=== PATIENT | male | born 1980 | race Caucasian/White ===

== ENCOUNTER 2017-10-10 07:58 | Emergency (ER) | payer BC ==
[2017-10-10] MEDS ORDERED: HYDROmorphone 0.5 MG/0.5 ML SYRINGE IVPUSH ONE (08:11)
[2017-10-10] MEDS ORDERED: Metoclopramide 10 MG/2 ML SDV IVPUSH ONE (08:11)
[2017-10-10] MEDS ORDERED: Sodium Chloride 0.9% 1,000 ML IV SCH (08:15)
[2017-10-10] MEDS ORDERED: Ketorolac 30 MG/ML SDV IVPUSH SCH (08:15)
--- NOTE | 2017-10-10 08:18 | EDM.PDOC ---
ED HPI GENERAL MEDICAL PROBLEM - General Chief Complaint: Abdominal Pain Stated Complaint: ABDOMINAL PAIN/BACK PAIN Time Seen by Provider: 10/10/17 08:08 Source of Information: Reports: Patient History Limitations: Reports: No Limitations - History of Present Illness INITIAL COMMENTS - FREE TEXT/NARRATIVE: 37-year-old male presents the ED with acute onset of left flank pain about 0530 hrs. Pain started in the left flank and then progressed down into his left mid abdomen. No pain in the groin or testicle. Pain is constant with a strong colicky component. Associated nausea without vomiting. Diffuse diaphoresis. Did have a bowel movement and has a continual feeling of need to void. Did not notice any blood in his urine. Has no prior history of kidney stone disease. No family history of renal stones. No previous abdominal surgery. Onset: Today Onset Date: 10/10/17 Onset Time: 06:00 Duration: Hour(s): Location: Reports: Abdomen (Left mid to lower abdomen.), Back (Left flank) Quality: Reports: Ache, Pressure, Other Severity: Severe (Current pain is current pain is 9 out of 10) Improves with: Reports: None Worsens with: Reports: None Context: Reports: Other (Spontaneous occurrence left flank shortly after getting up from the day.). Denies: Activity, Exercise, Lifting, Sick Contact, Trauma Associated Symptoms: Reports: Diaphoresis, Loss of Appetite, Nausea/Vomiting ( Nausea without vomiting). Denies: Confusion, Chest Pain, Cough, cough w sputum , Malaise, Rash, Seizure, Shortness of Breath, Syncope Treatments HOME [facility] LPN: Reports: Other (see below) (None.) Left Flank Pain Score (Numeric/FACES): 9 - Related Data Allergies Allergy/AdvReac Type Severity Reaction Status Date / Time acetaminophen [From Tylenol] Allergy Fever Verified 10/10/17 08:05 dextromethorphan HBr Allergy Fever Verified 10/10/17 08:05 [From Tylenol Cold Multi-Symptom] guaifenesin Allergy Fever Verified 10/10/17 08:05 [From Tylenol Cold Multi-Symptom] lidocaine Allergy Cannot Verified 10/10/17 08:05 Remember Penicillins Allergy Cannot Verified 10/10/17 08:05 Remember phenylephrine HCl Allergy Fever Verified 10/10/17 08:05 [From Tylenol Cold Multi-Symptom] pseudoephedrine HCl Allergy Fever Verified 10/10/17 08:05 [From Tylenol Cold Multi-Symptom] Home Meds: Home Meds Escitalopram [Lexapro] 10 mg PO DAILY 10/10/17 [History] Metoprolol Succinate 100 mg PO DAILY 10/10/17 [History] Ondansetron [Zofran] 4 mg BUCCAL Q6H PRN #5 tab 10/10/17 [Rx] Tamsulosin HCl [Flomax] 0.4 mg PO DAILY #5 cap.er.24h 10/10/17 [Rx] amLODIPine Besylate [Amlodipine Besylate] 5 mg PO DAILY 10/10/17 [History] oxyCODONE HCl [Roxicodone] 5 mg PO Q4H PRN #15 tablet 10/10/17 [Rx] Past Medical History Cardiovascular History: Reports: Hypertension Gastrointestinal History: Reports: Pancreatitis - Past Surgical History Musculoskeletal Surgical History: Reports: Other (See Below) Other Musculoskeletal Surgeries/Procedures:: knee surgery Social & Family History - Tobacco Use Smoking Status *Q: Never Smoker - Recreational Drug Use Recreational Drug Use: No - Living Situation & Occupation Living situation: Reports: Occupation: Employed ED ROS GENERAL - Review of Systems Review Of Systems: See Below Constitutional: Reports: No Symptoms HEENT: Reports: No Symptoms Respiratory: Reports: No Symptoms Cardiovascular: Reports: No Symptoms Endocrine: Reports: No Symptoms GI/Abdominal: Reports: Abdominal Pain (Left mid lower abdominal pain.) : Reports: Frequency, Urgency. Denies: Dysuria Musculoskeletal: Reports: Back Pain (Left flank pain) Skin: Reports: Diaphoresis Neurological: Reports: No Symptoms Psychiatric: Reports: No Symptoms Hematologic/Lymphatic: Reports: No Symptoms Immunologic: Reports: No Symptoms ED EXAM, RENAL/ - Physical Exam Exam: See Below Exam Limited By: No Limitations General Appearance: Alert, WD/WN, Moderate Distress Eye Exam: Bilateral Eye: Normal Inspection Neck: Normal Inspection, Supple, Non-Tender, Full Range of Motion. No: Lymphadenopathy (L), Lymphadenopathy (R) Respiratory/Chest: No Respiratory Distress, Lungs Clear, Normal Breath Sounds, Chest Non-Tender Cardiovascular: Normal Peripheral Pulses, Regular Rate, Rhythm, No Edema, No Gallop, No Murmur GI/Abdominal: Non-Tender, No Organomegaly, No Distention, No Mass, Pelvis Stable , Abnormal Bowel Sounds (Very few bowel sounds evident.), Other (Confirm abdominal wall as he is well muscled.). No: Rigid, Rebound, Tender Back Exam: Normal Inspection, Full Range of Motion, CVA Tenderness (L) Extremities: Normal Inspection, Normal Range of Motion, Non-Tender, No Pedal Edema Neurological: Alert, Oriented, CN II-XII Intact, Normal Cognition, Normal Gait Psychiatric: Anxious Skin Exam: Diaphoretic (Very cool and clammy.) Course - Vital Signs Last Recorded V/S: Last Vital Signs Temp 35.5 C 10/10/17 08:01 Pulse 78 10/10/17 09:58 Resp 16 10/10/17 09:58 BP 139/95 H 10/10/17 08:01 Pulse Ox 97 10/10/17 09:58 - Orders/Labs/Meds Meds: Medications Discontinued Medications Generic Name Dose Route Start Last Admin Trade Name Freq PRN Reason Stop Dose Admin Hydromorphone HCl 1 mg 10/10/17 08:11 10/10/17 08:18 Dilaudid IVPUSH 10/10/17 08:12 1 mg ONETIME ONE Administration Sodium Chloride 1,000 mls @ 150 mls/hr 10/10/17 08:15 10/10/17 08:19 Normal Saline IV 150 mls/hr ASDIRECTED BARI Administration Ketorolac Tromethamine 30 mg 10/10/17 08:15 10/10/17 08:18 Toradol IVPUSH 30 mg ONETIME ABRI Administration Metoclopramide HCl 10 mg 10/10/17 08:11 10/10/17 08:18 Reglan IVPUSH 10/10/17 08:12 10 mg ONETIME ONE Administration - Radiology Interpretation Free Text/Narrative:: 37-year-old male presents the ED with acute onset of severe left flank pain radiating to his left lower midabdomen. He states he woke around 0530 hrs. pain started may be around 0600 hrs. Made his bowels move and he still has a feeling of need to void in spite of voiding twice. Associated nausea without vomiting. No past history of kidney stones. Medically presents with acute left renal colic. Plan IV normal saline at 150 mils per hour. Given Dilaudid 1 mg IV with Reglan 10 mg IV and Toradol 30 mg IV for pain relief. Plan urinalysis as an CT of the abdomen to be done per renal protocol. - Re-Assessments/Exams Free Text/Narrative Re-Assessment/Exam: 10/10/17 08:59 CT of the abdomen and pelvis confirms a 3.5 mm partially obstructing stone at the UVJ on the left side. No other abnormal calcification are seen within the kidneys at this time. Patient's pain is currently down to 1 out of 10. Quite drowsy from the medication however. Will monitor in the ED for another half an hour. Tentatively he'll be discharged home on Percocet tablets 5 /3/25 milligrams one or 2 every 4-6 hours needed for relief of pain. No urinary symptoms to make sure the passes his stone. Flomax 0.4 mg once daily 5 days until stone is passed. Zofran 4 mg sublingually every 6 hours. For nausea relief. malka. 10/10/17 09:45 Patient remains pain-free. He will therefore be discharged to home with a urinary cystoscopy. Nausea to be controlled with Zofran 4 mg under the tongue every 4 hours as needed. Percocet tabs 5/325 milligrams one or 2 every 4-6 hours needed for recurrence of pain. Off work today and therefore no note given for missing work. Tentatively he'll be able to return to work tomorrow although it's unclear when the stone will pass. It is likely to pass within the next 48 hours. Departure - Departure Time of Disposition: 09:46 Disposition: Home, Self-Care 01 Condition: Fair Clinical Impression: Renal colic on left side - Discharge Information Prescriptions: Ondansetron [Zofran] 4 mg BUCCAL Q6H PRN #5 tab PRN Reason: nausea or vomiting oxyCODONE HCl [Roxicodone] 5 mg PO Q4H PRN #15 tablet PRN Reason: Kidney stone pain Tamsulosin HCl [Flomax] 0.4 mg PO DAILY #5 cap.er.24h Instructions: Renal Colic, [id number] Referrals: Alpesh Shukla MD [Primary Care Provider] - Forms: ED Department Discharge Additional Instructions: Evaluation the emergency room today in regards to sudden onset of severe left flank back pain radiating around into the left mid lower abdomen. Associated nausea without vomiting. History is compatible with kidney stone. This is proven by CT scan which shows a 3.5 mm stone in the lower portion of your left ureter. The stone has approximately an inch to travel before would be in the urinary bladder which time he'll pass it without any difficulty. The problem is we never know when the stones are going to pass. Usually within the next 48 hours. Treatment is plenty of fluids. Activity as tolerated. If pain reoccurs take Zofran 4 mg under the tongue and Roxicodone likely 2 tablets every 4 hours as needed for pain relief. Strain the urine every time he avoid until stone is identified to have passed. The other medication we use is Flomax 0.4 mg 1 tablet daily next 5 days to help facilitate stone passage. This tablet would be due today when you purchase the medication from the pharmacy. If you do not pass the stone within the next 2 weeks and follow-up with your personal physician to arrange urology consultation is advised.
--- NOTE | 2017-10-10 08:49 | CT ---
CT abdomen and pelvis Technique: Multiple axial sections were obtained from above the dome of the diaphragm inferiorly through the pubic symphysis. Intravenous and oral contrast not utilized. Study performed as a ureteral stone protocol. Findings: Small subpleural nodule is noted within the left lung base measuring approximately 6 mm. Small portion the visualized lung bases are otherwise clear. Noncontrast appearance of the liver and spleen appear within normal limits. Adrenal glands show no nodule. Pancreas is within normal limits. Gallbladder contains no gallstones. Kidneys shows a mildly prominent left ureter. This finding is due to an obstructing stone at the UVJ measuring approximately 3.5 mm. No abnormal calcifications are seen within the kidneys. Aorta shows no aneurysmal dilatation. No retroperitoneal adenopathy is seen. Appendix is seen which appears normal in size. No pelvic mass or adenopathy is seen. Bone window settings were reviewed which shows a cyst within the L3 and L4 vertebral bodies believed to be incidental. 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 Impression: 1. Distal left ureteral stone at the UVJ measuring 3.5 mm causing proximal hydronephrosis. 2. Other incidental findings as noted above. Diagnostic code #3
== END 2017-10-10 10:00 | disposition home or self-care (01) ==
LOC: JD.ED 07:58
DX: N23 Unspecified renal colic (principal); N20.1 Calculus of ureter; I10 Essential (primary) hypertension; Z88.0 Allergy status to penicillin; Z88.8 Allergy status to other drugs, medicaments and biological substances; Z79.899 Other long term (current) drug therapy
CPT/HCPCS: 74176; 96361; 96374; 96375; 99285; J1170; J1885; J2765; J7040